=== PATIENT | female | born 1965 | race Caucasian/White ===

== ENCOUNTER 2018-09-06 23:34 | Inpatient (IN) | payer OTHER ==
[2018-09-07] MEDS ORDERED: Ondansetron 4 MG/2 ML SDV IVPUSH ONE (00:58)
[2018-09-07] MEDS ORDERED: HYDROmorphone 0.5 MG/0.5 ML Syringe IVPUSH ONE ×2 (00:58→03:04)
[2018-09-07] MEDS ORDERED: Lactated Ringers 1,000 ML IV ONE (00:59)
[2018-09-07] MEDS ORDERED: Sodium Chloride 0.9% 10 ML Syringe FLUSH PRN (01:20)
--- NOTE | 2018-09-07 01:23 | EDM.PDOC ---
ED HPI GENERAL MEDICAL PROBLEM - General Chief Complaint: Abdominal Pain Stated Complaint: ABD PAIN Time Seen by Provider: 09/07/18 00:50 Source of Information: Reports: Patient History Limitations: Reports: No Limitations - History of Present Illness INITIAL COMMENTS - FREE TEXT/NARRATIVE: 52-year-old without significant medical comorbidities presents with concerns of abdominal pain. She reports that symptoms started earlier this evening. She describes an intermittent, sharp, severe, primarily epigastric abdominal pain with radiation into the right flank. It has been associated with nausea and an episode of vomiting. No fevers. No hx of similar pain in the past. No abnormal BMs. No urinary symptoms or hematuria. No vaginal discharge or bleeding. No prior abdominal surgeries. Has been at [employer], etoh use today. 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: - Infectious Disease History Infectious Disease History: Reports: C-Difficile - Past Surgical History HEENT Surgical History: Reports: Naso-Sinus Surgery GI Surgical History: Reports: Colonoscopy Female Surgical History: Reports: Other (See Below) Other Female Surgeries/Procedures: bladder lift surgery Musculoskeletal Surgical History: Reports: Hip Replacement, Other (See Below) Other Musculoskeletal Surgeries/Procedures:: lef thip Social & Family History - Tobacco Use Smoking Status *Q: Never Smoker - Caffeine Use Caffeine Use: Reports: Coffee - Alcohol Use Days Per Week of Alcohol Use: 2 Number of Drinks Per Day: 2 Total Drinks Per Week: 4 - Recreational Drug Use Recreational Drug Use: No ED ROS GENERAL - Review of Systems Review Of Systems: See Below Constitutional: Reports: No Symptoms HEENT: Reports: No Symptoms Respiratory: Reports: No Symptoms Cardiovascular: Reports: No Symptoms Endocrine: Reports: No Symptoms GI/Abdominal: Reports: Abdominal Pain, Nausea, Vomiting. Denies: Constipation, Diarrhea : Reports: No Symptoms Musculoskeletal: Reports: No Symptoms Skin: Reports: No Symptoms Neurological: Reports: No Symptoms Psychiatric: Reports: No Symptoms Hematologic/Lymphatic: Reports: No Symptoms Immunologic: Reports: No Symptoms ED EXAM, GI/ABD - Physical Exam Exam: See Below Exam Limited By: No Limitations General Appearance: Alert, Mild Distress Ears: Normal External Exam Nose: Normal Inspection Throat/Mouth: Normal Inspection Head: Atraumatic, Normocephalic Neck: Normal Inspection Respiratory/Chest: No Respiratory Distress, Lungs Clear Cardiovascular: Regular Rate, Rhythm GI/Abdominal Exam: Soft, Tender (epigastric and left sided abdominal tenderness) . No: Rigid Back Exam: CVA Tenderness (R) (mild). No: CVA Tenderness (L) Extremities: Normal Inspection Neurological: Alert, Oriented, No Motor/Sensory Deficits Psychiatric: Normal Affect, Normal Mood Skin Exam: Warm, Dry Course - Vital Signs Last Recorded V/S: Last Vital Signs Temp 36.8 C 09/07/18 00:03 Pulse 69 09/07/18 03:22 Resp 16 09/07/18 03:22 BP 148/82 H 09/07/18 03:22 Pulse Ox 94 L 09/07/18 03:22 - Orders/Labs/Meds Orders: Active Orders 24 hr Category Date Time Status Iopamidol [Isovue-300 (61%)] Med 09/07/18 01:30 Active 100 ml IV . DIRECTED Sodium Chloride 0.9% [Normal Saline] 80 ml Med 09/07/18 01:30 Active IV ASDIRECTED Sodium Chloride 0.9% [Saline Flush] Med 09/07/18 01:20 Active 10 ml FLUSH ASDIRECTED PRN Medication Orders Sodium Chloride (Normal Saline) 80 mls @ 3 mls/sec IV ASDIRECTED TASHI Last Admin: 09/07/18 01:35 Dose: 3 mls/sec Iopamidol (Isovue-300 (61%)) 100 ml IV . DIRECTED TASHI Last Admin: 09/07/18 01:35 Dose: 100 ml Sodium Chloride (Saline Flush) 10 ml FLUSH ASDIRECTED PRN PRN Reason: Keep Vein Open Last Admin: 09/07/18 01:35 Dose: 10 ml Labs: Laboratory Tests 09/07/18 09/07/18 09/07/18 Range/Units 00:25 00:25 00:25 WBC 12.2 H (4.5-11.0) K/uL RBC 4.51 (3.30-5.50) M/uL Hgb 14.1 (12.0-15.0) g/dL Hct 42.4 (36.0-48.0) % MCV 94 (80-98) fL MCH 31 (27-31) pg MCHC 33 (32-36) % Plt Count 254 (150-400) K/uL Sodium 144 (140-148) mmol/L Potassium 3.4 L (3.6-5.2) mmol/L Chloride 103 (100-108) mmol/L Carbon Dioxide 29 (21-32) mmol/L Anion Gap 15.4 H (5.0-14.0) mmol/L BUN 14 (7-18) mg/dL Creatinine 0.9 (0.6-1.0) mg/dL Est Cr Clr Drug Dosing 79.87 mL/min Estimated GFR (MDRD) > 60 (>60) Glucose 98 (74-106) mg/dL Calcium 9.4 (8.5-10.1) mg/dL Total Bilirubin 0.4 (0.2-1.0) mg/dL AST 23 (15-37) U/L ALT 24 (12-78) U/L Alkaline Phosphatase 89 (46-116) U/L Total Protein 7.5 (6.4-8.2) g/dL Albumin 4.0 (3.4-5.0) g/dL Globulin 3.5 (2.3-3.5) g/dL Albumin/Globulin Ratio 1.1 L (1.2-2.2) Lipase 124 (73-393) U/L Urine Color Urine Appearance Urine pH (4.5-8.0) Ur Specific [place] (1.008-1.030) Urine Protein (NEGATIVE) mg/dL Urine Glucose (UA) (NEGATIVE) mg/dL Urine Ketones (NEGATIVE) mg/dL Urine Occult Blood (NEGATIVE) Urine Nitrite (NEGATIVE) Urine Bilirubin (NEGATIVE) Urine Urobilinogen (NORMAL) mg/dL Ur Leukocyte Esterase (NEGATIVE) Urine RBC (0-5) Urine WBC (0-5) Ur Epithelial Cells Amorphous Sediment Urine Bacteria Urine Mucus 09/07/18 Range/Units 00:58 WBC (4.5-11.0) K/uL RBC (3.30-5.50) M/uL Hgb (12.0-15.0) g/dL Hct (36.0-48.0) % MCV (80-98) fL MCH (27-31) pg MCHC (32-36) % Plt Count (150-400) K/uL Sodium (140-148) mmol/L Potassium (3.6-5.2) mmol/L Chloride (100-108) mmol/L Carbon Dioxide (21-32) mmol/L Anion Gap (5.0-14.0) mmol/L BUN (7-18) mg/dL Creatinine (0.6-1.0) mg/dL Est Cr Clr Drug Dosing mL/min Estimated GFR (MDRD) (>60) Glucose (74-106) mg/dL Calcium (8.5-10.1) mg/dL Total Bilirubin (0.2-1.0) mg/dL AST (15-37) U/L ALT (12-78) U/L Alkaline Phosphatase (46-116) U/L Total Protein (6.4-8.2) g/dL Albumin (3.4-5.0) g/dL Globulin (2.3-3.5) g/dL Albumin/Globulin Ratio (1.2-2.2) Lipase (73-393) U/L Urine Color Yellow Urine Appearance Clear Urine pH 8.0 (4.5-8.0) Ur Specific [place] 1.010 (1.008-1.030) Urine Protein Negative (NEGATIVE) mg/dL Urine Glucose (UA) Normal (NEGATIVE) mg/dL Urine Ketones Negative (NEGATIVE) mg/dL Urine Occult Blood Negative (NEGATIVE) Urine Nitrite Negative (NEGATIVE) Urine Bilirubin Negative (NEGATIVE) Urine Urobilinogen Normal (NORMAL) mg/dL Ur Leukocyte Esterase Trace (NEGATIVE) Urine RBC 0-5 (0-5) Urine WBC 0-5 (0-5) Ur Epithelial Cells Rare Amorphous Sediment Moderate Urine Bacteria Few Urine Mucus Not seen Meds: Medications Generic Name Dose Route Start Last Admin Trade Name Freq PRN Reason Stop Dose Admin Sodium Chloride 80 mls @ 3 mls/sec 09/07/18 01:30 09/07/18 01:35 Normal Saline IV 3 mls/sec ASDIRECTED TASHI Administration Iopamidol 100 ml 09/07/18 01:30 09/07/18 01:35 Isovue-300 (61%) IV 100 ml . DIRECTED TASHI Administration Sodium Chloride 10 ml 09/07/18 01:20 09/07/18 01:35 Saline Flush FLUSH 10 ml ASDIRECTED PRN Administration Keep Vein Open Discontinued Medications Generic Name Dose Route Start Last Admin Trade Name Jonathan PRN Reason Stop Dose Admin Hydromorphone HCl 0.5 mg 09/07/18 00:58 09/07/18 01:08 Dilaudid IVPUSH 09/07/18 00:59 0.5 mg ONETIME ONE Administration Hydromorphone HCl 0.5 mg 09/07/18 03:04 09/07/18 03:16 Dilaudid IVPUSH 09/07/18 03:05 0.5 mg ONETIME ONE Administration Lactated Ringer's 1,000 mls @ 1,000 mls/hr 09/07/18 00:59 09/07/18 01:09 Ringers, Lactated IV 09/07/18 01:58 1,000 mls/hr BOLUS ONE Administration Ondansetron HCl 4 mg 09/07/18 00:58 09/07/18 01:04 Zofran IVPUSH 09/07/18 00:59 4 mg ONETIME ONE Administration - Re-Assessments/Exams Free Text/Narrative Re-Assessment/Exam: 52-year-old without significant co-morbidities presents with concerns of abdominal pain. Quite uncomfortable on exam. Significant abdominal tenderness, primarily epigastrium and left side. Sounds to be colicky in natures, however exam not consistent with renal stone or GB disease. Obtaining abdominal labs, CT abdomen/pelvic. Providing IV fluids, pain meds, and anti-emetics. 09/07/18 01:27 Free Text/Narrative Re-Assessment/Exam: CT with small bowel obstruction. Continues to have abdominal pain but no significant emesis Defer NG tube placement for now admitted to the hospitalist. 09/07/18 04:46 Departure - Departure Time of Disposition: 04:30 Disposition: Admitted As Inpatient 64 Clinical Impression: Small bowel obstruction - Discharge Information Referrals: PCP,None [Primary Care Provider] - Forms: ED Department Discharge - My Orders Last 24 Hours: My Active Orders 09/07/18 01:20 Sodium Chloride 0.9% [Saline Flush] 10 ml FLUSH ASDIRECTED PRN 09/07/18 01:30 Iopamidol [Isovue-300 (61%)] 100 ml IV . DIRECTED Sodium Chloride 0.9% [Normal Saline] 80 ml IV ASDIRECTED - Assessment/Plan Last 24 Hours: My Active Orders 09/07/18 01:20 Sodium Chloride 0.9% [Saline Flush] 10 ml FLUSH ASDIRECTED PRN 09/07/18 01:30 Iopamidol [Isovue-300 (61%)] 100 ml IV . DIRECTED Sodium Chloride 0.9% [Normal Saline] 80 ml IV ASDIRECTED
[2018-09-07] MEDS ORDERED: Iopamidol 612 MG/ML 100 ML Bottle IV SCH (01:30)
[2018-09-07] MEDS ORDERED: Sodium Chloride 0.9% 80 ML IV SCH (01:30)
--- NOTE | 2018-09-07 02:37 | CRLCT ---
INDICATION: Abdominal pain TECHNIQUE: CT abdomen and pelvis acquired with 100 cc Isovue-300 intravenous contrast. COMPARISON: None. FINDINGS: Lower chest: Unremarkable. Liver: Unremarkable. Normal in size and attenuation. No masses. Gallbladder and bile ducts: Unremarkable. No stones or inflammation. No biliary dilatation. Pancreas: Unremarkable. No mass or inflammation. Spleen: Unremarkable. Normal in size. No masses. Adrenal glands: Unremarkable. No nodules. Kidneys: Unremarkable. No masses, stones, or hydronephrosis. GI tract: The stomach is unremarkable. There are dilated loops of proximal small bowel with an abrupt transition in the midline (2, 81). Trace adjacent mesenteric edema. Distal small bowel and colon are decompressed. Vasculature: Unremarkable. Pelvis: Small free fluid within the deep pelvis with anteverted uterus with intrauterine device. Bladder unremarkable. Bones: Status post left total hip replacement. IMPRESSION: 1. Small-bowel obstruction with transition at the mid small bowel, likely secondary to adhesions at this level. 2. Small free fluid in the pelvis, likely secondary to the small bowel obstruction. Please note that all CT scans at this facility use dose modulation, iterative reconstruction, and/or weight-based dosing when appropriate to reduce radiation dose to as low as reasonably achievable. Dictated by Jagjit Welsh MD @ Sep 07 2018 2:31AM Signed by Dr. Jagjit Welsh @ Sep 07 2018 2:35AM
[2018-09-07] MEDS ORDERED: Lidocaine 2% Jelly 10 ML Urojet MUCMEM ONE (06:11)
--- NOTE | 2018-09-07 06:19 | PCM.HP ---
H&P History of Present Illness - General Date of Service: 09/07/18 Admit Problem/Dx: Admission Diagnosis/Problem Admission Diagnosis/Problem Small bowel obstruction Source of Information: Patient, Family, Provider History Limitations: Reports: No Limitations - History of Present Illness Initial Comments - Free Text/Narative: CC: my belly hurts HPI: Micheline presents to the emergency room with upper and especially right upper abdominal pain. Symptoms started yesterday evening and have progressed since that time. She is currently reporting moderately severe pain in the upper abdomen. The pain does not radiate though it is present to some extent throughout most of her abdomen. She hasn't taken anything to make the pain better prior to getting here but has had improvement with IV pain medications in the emergency room. Pain comes and goes in waves with no obvious trigger. She has had one episode of vomiting and fair amount of nausea. She has not had any fevers or chills. She has not had any sick contacts. No change in bowel or bladder habits. No shortness of breath or cough. No history of abdominal surgeries but she did have a bladder lift surgery done vaginally. Workup in the emergency room included laboratory studies and a CT scan of the abdomen and pelvis. There was evidence for a small bowel obstruction with transition point in the mid abdomen. No obvious cause for the obstruction was identified. The patient had an NG tube placed in the emergency room and will be admitted for further management. 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: - Infectious Disease History Infectious Disease History: Reports: C-Difficile - Past Surgical History HEENT Surgical History: Reports: Naso-Sinus Surgery GI Surgical History: Reports: Colonoscopy Female Surgical History: Reports: Other (See Below) Other Female Surgeries/Procedures: bladder lift surgery Musculoskeletal Surgical History: Reports: Hip Replacement, Other (See Below) Other Musculoskeletal Surgeries/Procedures:: lef thip Social & Family History - Family History GI: Reports: Other (See Below) (colon issue requiring resection and colostomy) - Tobacco Use Smoking Status *Q: Never Smoker - Caffeine Use Caffeine Use: Reports: Coffee - Alcohol Use Days Per Week of Alcohol Use: 2 Number of Drinks Per Day: 2 Total Drinks Per Week: 4 - Recreational Drug Use Recreational Drug Use: No H&P Review of Systems - Review of Systems: Review Of Systems: See Below Free Text/Narrative: A complete 12 point review of systems was obtained. Pertinent positives and negatives are noted in the history of present illness. All other systems were reviewed and were negative except as noted. Exam - Exam Exam: See Below - Vital Signs Vital Signs: Last Vital Signs Temp 36.8 C 09/07/18 00:03 Pulse 69 09/07/18 03:22 Resp 16 09/07/18 03:22 BP 148/82 H 09/07/18 03:22 Pulse Ox 94 L 09/07/18 03:22 Weight: 82.4 kg - Exam Quality Assessment: No: Supplemental Oxygen General: Alert, Oriented, Cooperative. No: Mild Distress HEENT: Conjunctiva Clear, Mucosa Moist & [place], Pupils Equal. No: Scleral Icterus Neck: Trachea Midline. No: Lymphadenopathy Lungs: Clear to Auscultation, Normal Respiratory Effort Cardiovascular: Regular Rate, Regular Rhythm. No: Systolic Murmur GI/Abdominal Exam: Soft, Distended (mild), Tender (mild diffuse). No: Abnormal Bowel Sounds (hypoactive ) Extremities: No Pedal Edema. No: Increased Warmth Peripheral Pulses: 2+: Dorsalis Pedis (L), Dorsalis Pedis (R) Skin: Warm, Dry Neuro Extensive - Mental Status: Alert, Oriented x3, Nl Response to Commands Neuro Extensive - Motor, Sensory, Reflexes: No: Dysarthria, Abnormal Motor, Tremor Psychiatric: Alert, Normal Affect - Patient Data Lab Results Last 24 hrs: Laboratory Results - last 24 hr 09/07/18 09/07/18 09/07/18 Range/Units 00:25 00:25 00:25 WBC 12.2 H (4.5-11.0) K/uL RBC 4.51 (3.30-5.50) M/uL Hgb 14.1 (12.0-15.0) g/dL Hct 42.4 (36.0-48.0) % MCV 94 (80-98) fL MCH 31 (27-31) pg MCHC 33 (32-36) % Plt Count 254 (150-400) K/uL Sodium 144 (140-148) mmol/L Potassium 3.4 L (3.6-5.2) mmol/L Chloride 103 (100-108) mmol/L Carbon Dioxide 29 (21-32) mmol/L Anion Gap 15.4 H (5.0-14.0) mmol/L BUN 14 (7-18) mg/dL Creatinine 0.9 (0.6-1.0) mg/dL Est Cr Clr Drug Dosing 79.87 mL/min Estimated GFR (MDRD) > 60 (>60) Glucose 98 (74-106) mg/dL Calcium 9.4 (8.5-10.1) mg/dL Total Bilirubin 0.4 (0.2-1.0) mg/dL AST 23 (15-37) U/L ALT 24 (12-78) U/L Alkaline Phosphatase 89 (46-116) U/L Total Protein 7.5 (6.4-8.2) g/dL Albumin 4.0 (3.4-5.0) g/dL Globulin 3.5 (2.3-3.5) g/dL Albumin/Globulin Ratio 1.1 L (1.2-2.2) Lipase 124 (73-393) U/L Urine Color Urine Appearance Urine pH (4.5-8.0) Ur Specific [place] (1.008-1.030) Urine Protein (NEGATIVE) mg/dL Urine Glucose (UA) (NEGATIVE) mg/dL Urine Ketones (NEGATIVE) mg/dL Urine Occult Blood (NEGATIVE) Urine Nitrite (NEGATIVE) Urine Bilirubin (NEGATIVE) Urine Urobilinogen (NORMAL) mg/dL Ur Leukocyte Esterase (NEGATIVE) Urine RBC (0-5) Urine WBC (0-5) Ur Epithelial Cells Amorphous Sediment Urine Bacteria Urine Mucus 09/07/18 Range/Units 00:58 WBC (4.5-11.0) K/uL RBC (3.30-5.50) M/uL Hgb (12.0-15.0) g/dL Hct (36.0-48.0) % MCV (80-98) fL MCH (27-31) pg MCHC (32-36) % Plt Count (150-400) K/uL Sodium (140-148) mmol/L Potassium (3.6-5.2) mmol/L Chloride (100-108) mmol/L Carbon Dioxide (21-32) mmol/L Anion Gap (5.0-14.0) mmol/L BUN (7-18) mg/dL Creatinine (0.6-1.0) mg/dL Est Cr Clr Drug Dosing mL/min Estimated GFR (MDRD) (>60) Glucose (74-106) mg/dL Calcium (8.5-10.1) mg/dL Total Bilirubin (0.2-1.0) mg/dL AST (15-37) U/L ALT (12-78) U/L Alkaline Phosphatase (46-116) U/L Total Protein (6.4-8.2) g/dL Albumin (3.4-5.0) g/dL Globulin (2.3-3.5) g/dL Albumin/Globulin Ratio (1.2-2.2) Lipase (73-393) U/L Urine Color Yellow Urine Appearance Clear Urine pH 8.0 (4.5-8.0) Ur Specific [place] 1.010 (1.008-1.030) Urine Protein Negative (NEGATIVE) mg/dL Urine Glucose (UA) Normal (NEGATIVE) mg/dL Urine Ketones Negative (NEGATIVE) mg/dL Urine Occult Blood Negative (NEGATIVE) Urine Nitrite Negative (NEGATIVE) Urine Bilirubin Negative (NEGATIVE) Urine Urobilinogen Normal (NORMAL) mg/dL Ur Leukocyte Esterase Trace (NEGATIVE) Urine RBC 0-5 (0-5) Urine WBC 0-5 (0-5) Ur Epithelial Cells Rare Amorphous Sediment Moderate Urine Bacteria Few Urine Mucus Not seen Result Diagrams: 09/07/18 00:25 09/07/18 00:25 Imaging Impressions Last 24 hrs: CT scan of the abdomen and pelvis - images personally reviewed - there is evidence for small bowel obstruction with dilated loops of small intestine noted throughout the abdomen. Transition point appears to be in the midabdomen. No obvious mass. Kidneys and pancreas are unremarkable. There is a fair amount of fluid in the stomach. *Q Meaningful Use (ADM) - VTE Risk Assess *Q Each Risk Factor Represents 1 Point: Age 41 - 59 years Total Score 1 Point Risk Factors: 1 Each Risk Factor Represents 2 Points: None Total Score 2 Point Risk Factors: 0 Each Risk Factor Represents 3 Points: None Total Score 3 Point Risk Factors: 0 Each Risk Factor Represents 5 Points: None Total Score 5 Point Risk Factors: 0 Venous Thromboembolism Risk Factor Score *Q: 1 - Problem List (1) Small bowel obstruction SNOMED Code(s): 597512100 ICD Code: K56.609 - UNSP INTESTNL OBST, UNSP TO PARTIAL VERSUS COMPLETE OBST Status: Acute Current Visit: Yes Problem List Initiated/Reviewed/Updated: Yes Orders Last 24hrs: Active Orders 24 hr Category Date Time Status Patient Status Manage Transfer [TRANSFER] Routine ADT 09/07/18 06:12 Ordered NG [Gastrointestinal Tube Mgmt] [RC] ASDIRECTED Care 09/07/18 06:07 Active Iopamidol [Isovue-300 (61%)] Med 09/07/18 01:30 Active 100 ml IV . DIRECTED Sodium Chloride 0.9% [Normal Saline] 80 ml Med 09/07/18 01:30 Active IV ASDIRECTED Sodium Chloride 0.9% [Saline Flush] Med 09/07/18 01:20 Active 10 ml FLUSH ASDIRECTED PRN NG [Nasogastric Orogastric Tube Insertion] [OM.PC] Oth 09/07/18 06:07 Ordered Routine Resuscitation Status Routine Resus Stat 09/07/18 06:13 Ordered Medication Orders Sodium Chloride (Normal Saline) 80 mls @ 3 mls/sec IV ASDIRECTED [facility] Last Admin: 09/07/18 01:35 Dose: 3 mls/sec Iopamidol (Isovue-300 (61%)) 100 ml IV . DIRECTED [facility] Last Admin: 09/07/18 01:35 Dose: 100 ml Sodium Chloride (Saline Flush) 10 ml FLUSH ASDIRECTED PRN PRN Reason: Keep Vein Open Last Admin: 09/07/18 01:35 Dose: 10 ml Assessment/Plan Comment:: ASSESSMENT AND PLAN - Small bowel obstruction - no history of abdominal surgeries. Patient is fairly comfortable at this time. NG tube placed with large amount of residual fluid in the stomach. -Continue NG tube with low continuous suction -Symptomatic management of a new and nausea -IV fluids -Flat and upright in the morning -Surgical consultation if not improving Maintenance issues - - DVT prophylaxis - SCDs - GI prophylaxis - PPI - Nutrition - nothing by mouth - Mancia catheter - not indicated CODE STATUS - full code Admission justification - This patient will be admitted for inpatient services and is medically appropriate meeting medical necessity for inpatient admission as outlined in my documentation. I reasonably expect the patient will require inpatient services that span a period time over 2 midnights. I reasonably expect this patient to be discharged or transferred within 96 hours after admission to the [facility]. Disposition - I would anticipate discharge home after the hospital stay Primary care physician - primary care is in [place], [place] Heri Mcconnell M.D.
[2018-09-07] MEDS ORDERED: LORazepam 2 MG/ML SDV IVPUSH ONE (06:27)
[2018-09-07] MEDS ORDERED: Acetaminophen 325 MG Tab PO PRN (07:36)
[2018-09-07] MEDS ORDERED: Ondansetron 4 MG/2 ML SDV IV PRN (07:36)
[2018-09-07] MEDS ORDERED: Ondansetron 4 MG Tab.DIS PO PRN (07:36)
[2018-09-07] MEDS ORDERED: LORazepam 2 MG/ML SDV IVPUSH PRN (07:36)
[2018-09-07] MEDS: Sodium Chloride 0.9% 1,000 ML IV SCH ×2 (08:31→16:11)
[2018-09-07] MEDS: Pantoprazole 40 MG Vial IV SCH (08:31)
[2018-09-07] MEDS: Potassium Chloride 20 MEQ, Lidocaine 1% 2 ML in Sodium Chloride 0.9% 100 ML IV SCH ×2 (10:13→12:54)
[2018-09-07] MEDS: HYDROmorphone 1 MG/ML Syringe IVPUSH PRN ×3 (13:03→22:08)
[2018-09-07] MEDS ORDERED: Phenol/Sodium Phenolate Spray 180 ML Bottle MUCMEM PRN (20:43)
[2018-09-08] MEDS: Sodium Chloride 0.9% 1,000 ML IV SCH ×3 (00:17→18:44)
[2018-09-08] MEDS: HYDROmorphone 1 MG/ML Syringe IVPUSH PRN (00:24)
[2018-09-08] MEDS: HYDROmorphone 0.5 MG/0.5 ML Syringe IVPUSH PRN ×2 (04:29→08:04)
--- NOTE | 2018-09-08 06:00 | CRLCR ---
Indication: Small-bowel obstruction. Technique: Abdomen 2 view. Comparison: Abdomen and pelvis CT 09/07/2018 Findings: A nasogastric tube is present with the tip in the body of the stomach. No dilated loops of large or small intestine seen with a moderate amount of stool within the colon. Intrauterine device and left total hip replacement noted. Impression: Nasogastric tube with tip in the body of the stomach. No dilated loops of large or small intestine. Dictated by Jagjit Welsh MD @ Sep 08 2018 5:58AM Signed by Dr. Jagjit Welsh @ Sep 08 2018 6:00AM
[2018-09-08] MEDS: Pantoprazole 40 MG Vial IV SCH (08:04)
--- NOTE | 2018-09-08 12:48 | PCM.PN ---
- General Info Date of Service: 09/08/18 Subjective Update: Ms. Berry has been stable since admission, abdominal pain, nausea, and vomiting have resolved after placement of the NG tube. She has been passing gas but has not yet had a bowel movement. NG output has diminished over the last 8 hours. - Review of Systems General: Reports: No Symptoms Pulmonary: Reports: No Symptoms Cardiovascular: Reports: No Symptoms Gastrointestinal: Reports: Flatus. Denies: Abdominal Pain, Difficulty Swallowing, Nausea, Vomiting - Patient Data Vitals - Most Recent: Last Vital Signs Temp 96.9 F 09/08/18 11:10 Pulse 69 09/08/18 11:10 Resp 16 09/08/18 11:10 BP 148/77 H 09/08/18 11:10 Pulse Ox 97 09/08/18 11:10 Weight - Most Recent: 180 lb 15.992 oz I&O - Last 24 Hours: Intake & Output 09/07/18 09/08/18 09/08/18 22:59 06:59 14:59 Intake Total 865 1647 Output Total 301 100 300 Balance 564 1547 -300 Lab Results Last 24 Hours: Laboratory Results - last 24 hr 09/08/18 09/08/18 Range/Units 04:00 04:00 WBC 8.5 (4.5-11.0) K/uL RBC 3.97 (3.30-5.50) M/uL Hgb 12.1 D (12.0-15.0) g/dL Hct 38.9 (36.0-48.0) % MCV 98 (80-98) fL MCH 31 (27-31) pg MCHC 31 L (32-36) % Plt Count 202 (150-400) K/uL Sodium 144 (140-148) mmol/L Potassium 3.8 (3.6-5.2) mmol/L Chloride 109 H (100-108) mmol/L Carbon Dioxide 27 (21-32) mmol/L Anion Gap 11.8 (5.0-14.0) mmol/L BUN 12 (7-18) mg/dL Creatinine 0.8 (0.6-1.0) mg/dL Est Cr Clr Drug Dosing 89.85 mL/min Estimated GFR (MDRD) > 60 (>60) Glucose 96 (74-106) mg/dL Calcium 8.1 L (8.5-10.1) mg/dL Med Orders - Current: Current Medications Acetaminophen (Tylenol) 650 mg PO Q4H PRN PRN Reason: Pain (Mild 1-3)/fever Hydromorphone HCl (Dilaudid) 0.5 mg IVPUSH Q2H PRN PRN Reason: Pain Last Admin: 09/08/18 08:04 Dose: 0.5 mg Sodium Chloride (Normal Saline) 1,000 mls @ 75 mls/hr IV ASDIRECTED [facility] Lorazepam (Ativan) 0.5 mg IVPUSH Q4H PRN PRN Reason: Nausea/Vomiting Ondansetron HCl (Zofran Odt) 4 mg PO Q6H PRN PRN Reason: Nausea able to take PO Ondansetron HCl (Zofran) 4 mg IV Q6H PRN PRN Reason: Nausea/Vomiting Pantoprazole Sodium (Protonix Iv) 40 mg IV Q24H [facility] Last Admin: 09/08/18 08:04 Dose: 40 mg Phenol (Phenaseptic Liquid) 5 ml MUCMEM Q2H PRN PRN Reason: Sore Throat Last Admin: 09/07/18 21:13 Dose: 1 spray Discontinued Medications Hydromorphone HCl (Dilaudid) 0.5 mg IVPUSH ONETIME ONE Stop: 09/07/18 00:59 Last Admin: 09/07/18 01:08 Dose: 0.5 mg Hydromorphone HCl (Dilaudid) 0.5 mg IVPUSH ONETIME ONE Stop: 09/07/18 03:05 Last Admin: 09/07/18 03:16 Dose: 0.5 mg Hydromorphone HCl (Dilaudid) 0.5 mg IVPUSH Q2H PRN PRN Reason: Pain Last Admin: 09/08/18 00:24 Dose: 0.5 mg Lactated Ringer's (Ringers, Lactated) 1,000 mls @ 1,000 mls/hr IV BOLUS ONE Stop: 09/07/18 01:58 Last Admin: 09/07/18 01:09 Dose: 1,000 mls/hr Sodium Chloride (Normal Saline) 80 mls @ 3 mls/sec IV ASDIRECTED [facility] Last Admin: 09/07/18 01:35 Dose: 3 mls/sec Sodium Chloride (Normal Saline) 1,000 mls @ 125 mls/hr IV ASDIRECTED [facility] Last Admin: 09/08/18 08:04 Dose: 125 mls/hr Potassium Chloride 20 meq/Lidocaine HCl 2 ml/ Sodium Chloride 112 mls @ 50 mls/ hr IV Q2H [facility] Stop: 09/07/18 12:59 Last Admin: 09/07/18 12:54 Dose: 50 mls/hr Iopamidol (Isovue-300 (61%)) 100 ml IV . DIRECTED [facility] Last Admin: 09/07/18 01:35 Dose: 100 ml Lidocaine HCl (Xylocaine 2% Jelly) 10 ml MUCMEM ONETIME ONE Stop: 09/07/18 06:12 Last Admin: 09/07/18 06:18 Dose: 10 ml Lorazepam (Ativan) 0.5 mg IVPUSH ONETIME ONE Stop: 09/07/18 06:28 Last Admin: 09/07/18 06:34 Dose: 0.5 mg Ondansetron HCl (Zofran) 4 mg IVPUSH ONETIME ONE Stop: 09/07/18 00:59 Last Admin: 09/07/18 01:04 Dose: 4 mg Sodium Chloride (Saline Flush) 10 ml FLUSH ASDIRECTED PRN PRN Reason: Keep Vein Open Last Admin: 09/07/18 01:35 Dose: 10 ml - Exam General: Alert, Oriented, Cooperative, Mild Distress Lungs: Clear to Auscultation, Normal Respiratory Effort Cardiovascular: Regular Rate, Regular Rhythm, No Murmurs GI/Abdominal Exam: Soft, No Organomegaly, Tender. No: Distended, Guarding, Rigid, Rebound - Problem List Review Problem List Initiated/Reviewed/Updated: Yes - My Orders Last 24 Hours: My Active Orders 09/08/18 11:05 NG [Gastrointestinal Tube Mgmt] [RC] ASDIRECTED 09/08/18 11:15 Sodium Chloride 0.9% [Normal Saline] 1,000 ml IV ASDIRECTED 09/08/18 12:42 Consult to Physician [CONS] Routine 09/08/18 12:43 Notify Provider Consults [RC] ASDIRECTED 09/09/18 05:00 Abdomen 2V AP Upright Decub [CR] Timed BASIC METABOLIC PANEL,BMP [CHEM] Timed - Plan Plan:: ASSESSMENT AND PLAN - Small bowel obstruction - no history of abdominal surgeries. Patient is fairly comfortable at this time. NG output significantly decreased through the night -Clamp NG tube -IV fluids -Flat and upright in the morning -Surgical consultation with Dr. Mason Maintenance issues - - DVT prophylaxis - SCDs - GI prophylaxis - PPI - Nutrition - nothing by mouth - Mancia catheter - not indicated CODE STATUS - full code Admission justification - This patient will be admitted for inpatient services and is medically appropriate meeting medical necessity for inpatient admission as outlined in my documentation. I reasonably expect the patient will require inpatient services that span a period time over 2 midnights. I reasonably expect this patient to be discharged or transferred within 96 hours [facility] Disposition - I would anticipate discharge home after the hospital stay Primary care physician - primary care is in [place], [place]
--- NOTE | 2018-09-09 06:41 | CRLCR ---
Indication: Small-bowel obstruction Technique: Abdomen 4 view. Comparison: 09/08/2018 Findings: Bowel: NG tube is unchanged in position in the proximal stomach. Bowel pattern is normal. The amount of colonic stool is within normal limits. Other: No sign of free air. No sign of soft tissue mass. No suspicious calcifications. Osseous structures are unremarkable for age. Impression: No sign of bowel obstruction. No change from yesterday`s exam. Dictated by Esteban Styles MD @ Sep 09 2018 6:38AM Signed by Dr. Esteban Styles @ Sep 09 2018 6:39AM
[2018-09-09] MEDS: Sodium Chloride 0.9% 1,000 ML IV SCH (08:05)
--- NOTE | 2018-09-09 08:33 | CONS ---
DATE OF SERVICE: 09/09/2018 REFERRING PHYSICIAN: CONSULTING PHYSICIAN: Krystal Gutierrez PA-C HISTORY OF PRESENT ILLNESS: Micheline Lyon is a 52-year-old female, who Brent San MD., of the Surgery Department to see in consultation for partial small bowel obstruction. Micheline was admitted to the hospital after being seen in the emergency room on 09/07/2018. She states she was at [employer] and drank more beer than she ate. The last solid food she had was broth and she developed severe upper and mid abdominal pain. She said she did see an EMT and he advised she go to the emergency room. Pain was intermittent, sharp, severe, mid epigastric area, radiated around to her back. She has been in the hospital now since 09/07/2018, and she states her pain has gone away. She has an NG in. NG has been clamped for 24 hours. Oral intake has just been ice chips. Urine output has not been recorded. Vital signs have been stable. She has not had a bowel movement and is not passing flatus. PAST MEDICAL HISTORY: Includes asthma, , history of Clostridium difficile. PAST SURGICAL HISTORY: Sinus surgery, colonoscopy routine, bladder lift surgery, and left hip replacement. SOCIAL HISTORY: . Has 2 children. 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 Smoking history; does not smoke. Caffeine; coffee. Minimal alcohol, two drinks per day up to four times a week. ALLERGIES: AMOXICILLIN AND AUGMENTIN. HOME MEDICATIONS: None. REVIEW OF SYSTEMS: GENERAL: Denies any fever, chills, night sweats, or fatigue. HEENT: Negative for headaches, dizziness, loss of coordination. RESPIRATORY: No cough or shortness of breath. CARDIOVASCULAR: No chest pain. Fast irregular heart beat. Has never had a murmur. ENDOCRINE: Negative. GASTROINTESTINAL: As above. Abdominal pain associated with nausea, vomiting. Last bowel movement was 09/06/2018. Has had no pain prior to the episode that brought her into the ER. GENITOURINARY: No UTI signs and symptoms. MUSCULOSKELETAL: No joint pain or swelling. SKIN: No rash. NEUROLOGIC: No headaches, dizziness, loss of coordination. PSYCHIATRIC: No depression, insomnia, or anxiety. HEMATOLOGIC and LYMPHATIC: Negative. Remainder of review of systems negative for any pertinent positives and negatives. OBJECTIVE: GENERAL: Micheline Berry is a 52-year-old female. VITAL SIGNS: Height is 5 feet 10.87 inches, weight is 180 pounds. TPR 98.1, 83, 16, blood pressure 153/89. HEENT: Negative. NECK: Supple. HEART: Regular rate and rhythm. LUNGS: Clear. ABDOMEN: Slight distention noted, otherwise negative for any tenderness in all four quadrants. EXTREMITIES: Without peripheral edema. Full range of motion. NEUROLOGIC: Cranial nerves II through XII intact. PSYCHIATRIC: Mood and affect appropriate. SKIN: Without rash. ASSESSMENT: Partial small bowel obstruction, resolving. PLAN: 1. Discontinue NG. 2. Full liquid diet. 3. We will evaluate p.r.n. or in a.m. Thank you for this consultation. Krystal Gutierrez PA-C /[id number]
[2018-09-09] MEDS ORDERED: Potassium Chloride Riders 40 MEQ in Premix Bag 1 BAG IV ONE (09:04)
[2018-09-09] MEDS: Pantoprazole 40 MG Vial IV SCH (09:22)
[2018-09-09] MEDS: Potassium Chloride 20 MEQ, Lidocaine 1% 2 ML in Sodium Chloride 0.9% 100 ML IV SCH ×2 (11:29→14:37)
--- NOTE | 2018-09-09 12:09 | PCM.PN ---
- General Info Date of Service: 09/09/18 Subjective Update: Ms. Berry has been stable since yesterday and tolerated having NG tube clamped since yesterday morning. Abdominal flat plate and upright x-ray obtained this morning showed no evidence of obstruction. She was seen and evaluated by Dr. Mason in the NG tube has been removed. She has been started on a full liquid diet which she has tolerated thus far. Functional Status: Reports: Pain Controlled, Tolerating Diet, Ambulating, Urinating - Review of Systems General: Denies: Fever, Weakness, Chills Pulmonary: Reports: No Symptoms Cardiovascular: Reports: No Symptoms Gastrointestinal: Reports: No Symptoms - Patient Data Vitals - Most Recent: Last Vital Signs Temp 97.0 F 09/09/18 11:16 Pulse 76 09/09/18 11:16 Resp 16 09/09/18 11:16 BP 140/81 09/09/18 11:16 Pulse Ox 97 09/09/18 11:16 Weight - Most Recent: 180 lb 15.992 oz I&O - Last 24 Hours: Intake & Output 09/08/18 09/09/18 09/09/18 22:59 06:59 14:59 Intake Total 1263 800 200 Balance 1263 800 200 Lab Results Last 24 Hours: Laboratory Results - last 24 hr 09/09/18 Range/Units 04:50 Sodium 141 (140-148) mmol/L Potassium 3.4 L (3.6-5.2) mmol/L Chloride 104 (100-108) mmol/L Carbon Dioxide 25 (21-32) mmol/L Anion Gap 15.4 H (5.0-14.0) mmol/L BUN 8 (7-18) mg/dL Creatinine 0.7 (0.6-1.0) mg/dL Est Cr Clr Drug Dosing 102.24 mL/min Estimated GFR (MDRD) > 60 (>60) Glucose 69 L (74-106) mg/dL Calcium 7.9 L (8.5-10.1) mg/dL Med Orders - Current: Current Medications Acetaminophen (Tylenol) 650 mg PO Q4H PRN PRN Reason: Pain (Mild 1-3)/fever Hydromorphone HCl (Dilaudid) 0.5 mg IVPUSH Q2H PRN PRN Reason: Pain Last Admin: 09/08/18 08:04 Dose: 0.5 mg Sodium Chloride (Normal Saline) 1,000 mls @ 75 mls/hr IV ASDIRECTED [facility] Last Admin: 09/09/18 08:05 Dose: 75 mls/hr Potassium Chloride 20 meq/Lidocaine HCl 2 ml/ Sodium Chloride 112 mls @ 56 mls/ hr IV Q2H [facility] Stop: 09/09/18 13:59 Last Admin: 09/09/18 11:29 Dose: 56 mls/hr Lorazepam (Ativan) 0.5 mg IVPUSH Q4H PRN PRN Reason: Nausea/Vomiting Ondansetron HCl (Zofran Odt) 4 mg PO Q6H PRN PRN Reason: Nausea able to take PO Ondansetron HCl (Zofran) 4 mg IV Q6H PRN PRN Reason: Nausea/Vomiting Pantoprazole Sodium (Protonix Iv) 40 mg IV Q24H [facility] Last Admin: 09/09/18 09:22 Dose: 40 mg Phenol (Phenaseptic Liquid) 5 ml MUCMEM Q2H PRN PRN Reason: Sore Throat Last Admin: 09/07/18 21:13 Dose: 1 spray Potassium Chloride (Klor-Con M20) 40 meq PO ONETIME ONE Stop: 09/09/18 17:01 Discontinued Medications Hydromorphone HCl (Dilaudid) 0.5 mg IVPUSH ONETIME ONE Stop: 09/07/18 00:59 Last Admin: 09/07/18 01:08 Dose: 0.5 mg Hydromorphone HCl (Dilaudid) 0.5 mg IVPUSH ONETIME ONE Stop: 09/07/18 03:05 Last Admin: 09/07/18 03:16 Dose: 0.5 mg Hydromorphone HCl (Dilaudid) 0.5 mg IVPUSH Q2H PRN PRN Reason: Pain Last Admin: 09/08/18 00:24 Dose: 0.5 mg Lactated Ringer's (Ringers, Lactated) 1,000 mls @ 1,000 mls/hr IV BOLUS ONE Stop: 09/07/18 01:58 Last Admin: 09/07/18 01:09 Dose: 1,000 mls/hr Sodium Chloride (Normal Saline) 80 mls @ 3 mls/sec IV ASDIRECTED [facility] Last Admin: 09/07/18 01:35 Dose: 3 mls/sec Sodium Chloride (Normal Saline) 1,000 mls @ 125 mls/hr IV ASDIRECTED [facility] Last Admin: 09/08/18 08:04 Dose: 125 mls/hr Potassium Chloride 20 meq/Lidocaine HCl 2 ml/ Sodium Chloride 112 mls @ 50 mls/ hr IV Q2H [facility] Stop: 09/07/18 12:59 Last Admin: 09/07/18 12:54 Dose: 50 mls/hr Iopamidol (Isovue-300 (61%)) 100 ml IV . DIRECTED [facility] Last Admin: 09/07/18 01:35 Dose: 100 ml Lidocaine HCl (Xylocaine 2% Jelly) 10 ml MUCMEM ONETIME ONE Stop: 09/07/18 06:12 Last Admin: 09/07/18 06:18 Dose: 10 ml Lorazepam (Ativan) 0.5 mg IVPUSH ONETIME ONE Stop: 09/07/18 06:28 Last Admin: 09/07/18 06:34 Dose: 0.5 mg Ondansetron HCl (Zofran) 4 mg IVPUSH ONETIME ONE Stop: 09/07/18 00:59 Last Admin: 09/07/18 01:04 Dose: 4 mg Sodium Chloride (Saline Flush) 10 ml FLUSH ASDIRECTED PRN PRN Reason: Keep Vein Open Last Admin: 09/07/18 01:35 Dose: 10 ml - Exam General: Alert, Oriented, Cooperative, No Acute Distress Lungs: Clear to Auscultation, Normal Respiratory Effort Cardiovascular: Regular Rate, Regular Rhythm, No Murmurs GI/Abdominal Exam: Soft, Non-Tender, No Organomegaly, No Distention Extremities: Non-Tender, No Pedal Edema - Problem List Review Problem List Initiated/Reviewed/Updated: Yes - My Orders Last 24 Hours: My Active Orders 09/08/18 11:15 Sodium Chloride 0.9% [Normal Saline] 1,000 ml IV ASDIRECTED 09/08/18 12:42 Consult to Physician [CONS] Routine 09/08/18 12:43 Notify Provider Consults [RC] ASDIRECTED 09/09/18 10:00 Potassium Chloride 20 meq Lidocaine 1% [Xylocaine 1%] 2 ml Sodium Chloride 0.9 % [Normal Saline] 100 ml IV Q2H 09/09/18 12:05 POTASSIUM,K [CHEM] Routine 09/09/18 17:00 Potassium Chloride [Klor-Con M20] 40 meq PO ONETIME ONE 09/10/18 05:00 Abdomen 2V AP Upright Decub [CR] Timed - Plan Plan:: ASSESSMENT AND PLAN - Small bowel obstruction - no history of abdominal surgeries. Stable over the last 24 hours with no recurrent anal or nausea. NG tube has been removed and she is tolerating a full liquid diet -Saline lock IV -Flat and upright in the morning -Surgical consultation with Dr. Mason Maintenance issues - - DVT prophylaxis - SCDs - GI prophylaxis - PPI - Nutrition - nothing by mouth - Mancia catheter - not indicated CODE STATUS - full code Admission justification - This patient will be admitted for inpatient services and is medically appropriate meeting medical necessity for inpatient admission as outlined in my documentation. I reasonably expect the patient will require inpatient services that span a period time over 2 midnights. I reasonably expect this patient to be discharged or transferred within 96 hours [facility] Disposition - I would anticipate discharge home after the hospital stay Primary care physician - primary care is in [place], [place]
[2018-09-09] MEDS ORDERED: Potassium Chloride 20 MEQ Tab.ER PO ONE (17:00)
--- NOTE | 2018-09-10 05:36 | CRLCR ---
INDICATION: Small bowel obstruction. COMPARISON: 09/09/2018. FINDINGS/IMPRESSION: Moderate prominence of stool throughout the colon suggests constipation. Bowel gas pattern is otherwise within normal limits, with no findings suggesting small bowel obstruction. No free air is seen. An IUD is again noted in the pelvis. Bony structures are unremarkable aside from prior left hip arthroplasty. Dictated by Marcos Eugene MD @ 09/10/2018 5:34:33 AM Dictated by: Marcos Eugene MD @ 09/10/2018 05:34:55 (Electronically Signed)
[2018-09-10] MEDS: Pantoprazole 40 MG Vial IV SCH (08:39)
--- NOTE | 2018-09-10 09:12 | PN ---
DATE OF SERVICE: 09/10/2018 SUBJECTIVE: Micheline had a surgical consult for partial small bowel obstruction. Her x-ray this morning showed that she had moderate prominence of stool throughout the colon, suggests constipation. No new findings suggesting small bowel obstruction. She states that she is having no pain. Vital signs have been stable. She did have 2 bowel movements. REVIEW OF SYSTEMS: CONSTITUTIONAL: No fever, chills, night sweats, or fatigue. Denies any headache or dizziness. NECK: Negative. CHEST: No chest pain or shortness of breath. LUNGS: No cough. Abdomen: As above. : No UTI signs and symptoms. EXTREMITIES: Negative. NEUROLOGIC: Negative for any loss of coordination, numbness or tingling in extremities. PSYCHIATRIC: Negative. SKIN: Without rash. Remainder of review of systems negative for any pertinent positives and negatives. OBJECTIVE: GENERAL: Micheline Berry is a 52-year-old female. She is alert and orientated. VITAL SIGNS: TPR; 97.7, 86, 18. Blood pressure 152/99. HEENT: Negative. NECK: Supple. HEART: Regular rate and rhythm. LUNGS: Clear. ABDOMEN: Negative. EXTREMITIES: Without peripheral edema. ASSESSMENT: Partial small bowel obstruction. PLAN: Recommend soft, low residue diet for 1 month and when discharged to follow up with primary care provider. Say Mason MD, recommended colonoscopy at some point. We will evaluate p.r.n. or in a.m. if the patient is not discharged. Krystal Gutierrez PA-C /[id number]
--- NOTE | 2018-09-10 09:40 | PCM.DCSUM1 ---
Discharge Summary - Hospital Course Brief History: Ms. Berry is a 52-year-old woman who was admitted through the emergency department with abdominal pain and nausea secondary to small bowel obstruction. - Discharge Data Discharge Date: 09/10/18 Discharge Disposition: Home, Self-Care 01 Condition: Good - Discharge Diagnosis/Problem(s) (1) Small bowel obstruction SNOMED Code(s): 809197229 ICD Code: K56.609 - UNSP INTESTNL OBST, UNSP TO PARTIAL VERSUS COMPLETE OBST Status: Acute Current Visit: Yes - Patient Summary/Data Consults: Consultations 09/08/18 12:42 Consult to Physician [CONS] Routine Consulting Provider: Say Mason Courtesy Call Completed to Consulting Physician: Yes Reason for Consult: SBO Hospital Course: Ms. Berry presented to the emergency room with upper abdominal pain. Symptoms started on the evening prior to admission and have progressed since that time. She is currently reporting moderately severe pain in the upper abdomen. The pain does not radiate though it is present to some extent throughout most of her abdomen. She hasn't taken anything to make the pain better prior to getting here but has had improvement with IV pain medications in the emergency room. Pain comes and goes in waves with no obvious trigger. She has had one episode of vomiting and fair amount of nausea. She has not had any fevers or chills. No history of abdominal surgeries but she did have a bladder lift surgery done vaginally. Workup in the emergency room included laboratory studies and a CT scan of the abdomen and pelvis. There was evidence for a small bowel obstruction with transition point in the mid abdomen. No obvious cause for the obstruction was identified. The patient had an NG tube placed in the emergency room and will be admitted for further management. On admission she was given IV fluids for hydration as well as pain and nausea medications. NG tube was kept in with low intermittent suction. Symptoms improved dramatically after the NG tube had been placed. Following morning flat plate and upright of the abdomen was obtained and showed no evidence of ongoing obstruction. NG tube was clamped which she tolerated 4. At 24 hours without recurrence of symptoms. Abdominal flat plate and upright was again obtained and showed no evidence of obstruction. Surgical consult was obtained with Dr. Mason , who recommended ongoing conservative management. She was started on a full liquid diet she tolerated for 24 hours. Third abdominal flat plate and upright abdomen was obtained in the morning of discharge showing no evidence of obstruction, she was noted to have a moderate amount of stool in the colon. She been passing gas and had had a bowel movement prior to discharge. On the morning of discharge she was able to tolerate a soft low residue diet without significant difficulty. Activity will be as tolerated and she will be on a soft low residue diet for 2 weeks. Follow-up appointment should be scheduled with her primary care provider within one week. Consider further evaluation as an outpatient including CT scan of the abdomen and pelvis with IV and oral contrast , as well as colonoscopy. - Patient Instructions Diet: GI Soft/Low Residue/Low Fiber (for 1 month ) Activity: As Tolerated Other/Special Instructions: Please schedule follow-up appointment with primary care provider within one week. Consider further outpatient evaluation including CT scan of the abdomen and pelvis with IV and oral contrast, as well as colonoscopy. - Discharge Plan *PRESCRIPTION DRUG MONITORING PROGRAM REVIEWED*: Not Applicable *COPY OF PRESCRIPTION DRUG MONITORING REPORT IN PATIENT MALIA: Not Applicable Home Medications: Home Meds Albuterol Sulfate [Albuterol Sulfate Hfa] 8.5 gm IH ASDIRECTED PRN 09/07/18 [ History] - Discharge Summary/Plan Comment DC Time >30 min.: No - Patient Data Vitals - Most Recent: Last Vital Signs Temp 97.7 F 09/10/18 07:00 Pulse 86 09/10/18 07:00 Resp 18 09/10/18 07:00 BP 152/99 H 09/10/18 07:00 Pulse Ox 98 09/10/18 07:00 Weight - Most Recent: 180 lb 15.992 oz I&O - Last 24 hours: Intake & Output 09/09/18 09/10/18 09/10/18 22:59 06:59 14:59 Intake Total 240 400 Balance 240 400 Lab Results - Last 24 hrs: Laboratory Results - last 24 hr 09/09/18 09/10/18 Range/Units 12:12 04:25 Potassium 3.5 L 3.8 (3.6-5.2) mmol/L Med Orders - Current: Current Medications Acetaminophen (Tylenol) 650 mg PO Q4H PRN PRN Reason: Pain (Mild 1-3)/fever Hydromorphone HCl (Dilaudid) 0.5 mg IVPUSH Q2H PRN PRN Reason: Pain Last Admin: 09/08/18 08:04 Dose: 0.5 mg Lorazepam (Ativan) 0.5 mg IVPUSH Q4H PRN PRN Reason: Nausea/Vomiting Ondansetron HCl (Zofran Odt) 4 mg PO Q6H PRN PRN Reason: Nausea able to take PO Ondansetron HCl (Zofran) 4 mg IV Q6H PRN PRN Reason: Nausea/Vomiting Pantoprazole Sodium (Protonix Iv) 40 mg IV Q24H [facility] Last Admin: 09/10/18 08:39 Dose: Not Given Phenol (Phenaseptic Liquid) 5 ml MUCMEM Q2H PRN PRN Reason: Sore Throat Last Admin: 09/07/18 21:13 Dose: 1 spray Discontinued Medications Hydromorphone HCl (Dilaudid) 0.5 mg IVPUSH ONETIME ONE Stop: 09/07/18 00:59 Last Admin: 09/07/18 01:08 Dose: 0.5 mg Hydromorphone HCl (Dilaudid) 0.5 mg IVPUSH ONETIME ONE Stop: 09/07/18 03:05 Last Admin: 09/07/18 03:16 Dose: 0.5 mg Hydromorphone HCl (Dilaudid) 0.5 mg IVPUSH Q2H PRN PRN Reason: Pain Last Admin: 09/08/18 00:24 Dose: 0.5 mg Lactated Ringer's (Ringers, Lactated) 1,000 mls @ 1,000 mls/hr IV BOLUS ONE Stop: 09/07/18 01:58 Last Admin: 09/07/18 01:09 Dose: 1,000 mls/hr Sodium Chloride (Normal Saline) 80 mls @ 3 mls/sec IV ASDIRECTED [facility] Last Admin: 09/07/18 01:35 Dose: 3 mls/sec Sodium Chloride (Normal Saline) 1,000 mls @ 125 mls/hr IV ASDIRECTED [facility] Last Admin: 09/08/18 08:04 Dose: 125 mls/hr Potassium Chloride 20 meq/Lidocaine HCl 2 ml/ Sodium Chloride 112 mls @ 50 mls/ hr IV Q2H [facility] Stop: 09/07/18 12:59 Last Admin: 09/07/18 12:54 Dose: 50 mls/hr Sodium Chloride (Normal Saline) 1,000 mls @ 75 mls/hr IV ASDIRECTED [facility] Last Admin: 09/09/18 08:05 Dose: 75 mls/hr Potassium Chloride 20 meq/Lidocaine HCl 2 ml/ Sodium Chloride 112 mls @ 56 mls/ hr IV Q2H [facility] Stop: 09/09/18 13:59 Last Admin: 09/09/18 14:37 Dose: 56 mls/hr Iopamidol (Isovue-300 (61%)) 100 ml IV . DIRECTED [facility] Last Admin: 09/07/18 01:35 Dose: 100 ml Lidocaine HCl (Xylocaine 2% Jelly) 10 ml MUCMEM ONETIME ONE Stop: 09/07/18 06:12 Last Admin: 09/07/18 06:18 Dose: 10 ml Lorazepam (Ativan) 0.5 mg IVPUSH ONETIME ONE Stop: 09/07/18 06:28 Last Admin: 09/07/18 06:34 Dose: 0.5 mg Ondansetron HCl (Zofran) 4 mg IVPUSH ONETIME ONE Stop: 09/07/18 00:59 Last Admin: 09/07/18 01:04 Dose: 4 mg Potassium Chloride (Klor-Con M20) 40 meq PO ONETIME ONE Stop: 09/09/18 17:01 Last Admin: 09/09/18 18:10 Dose: 40 meq Sodium Chloride (Saline Flush) 10 ml FLUSH ASDIRECTED PRN PRN Reason: Keep Vein Open Last Admin: 09/07/18 01:35 Dose: 10 ml - Exam General: Reports: Alert, Oriented, Cooperative, No Acute Distress
== END 2018-09-10 11:45 | disposition home or self-care (01) | DRG 390 ==
LOC: JP.ED 23:34 → JP.MS 09-07 06:12
PROVIDERS: ADMIT Internal Medicine; ATTEND Hospitalist
DX: K56.600 Partial intestinal obstruction, unspecified as to cause (principal); J45.909 Unspecified asthma, uncomplicated; Z96.642 Presence of left artificial hip joint; Z88.1 Allergy status to other antibiotic agents
CPT/HCPCS: 36415; 74019; 74021; 74177; 80048; 80053; 81001; 83690; 84132; 85027; 96361; 96374; 96375; 96376; 99285-25; A9270-GY; C9113; J1170; J2001; J2060; J2405; J3480; J7030; J7120; Q9967